=== PATIENT | male | born 1965 | race American Indian/Alaskan Native ===

== ENCOUNTER 2018-10-15 18:20 | Emergency (ER) | payer SELFPAY ==
[~2018-10-15] VITALS: Ht 180.3 cm; Wt 86.2 kg
--- OUTSIDE RECORDS SUMMARY | 2018-10-15 18:24 | XMS ---
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 No recent Security Events currently on file CRITERIA MET - 6 ED Visits in 6 Months - [facility] - Has Care Guidelines - [facility] - 3 Facilities in 90 Days - [facility] - 2 Visits in 30 Days CARE PROVIDERS LULU LUCAINO Current PHONE: Unknown [facility] Primary [facility] Current PHONE: Unknown [facility] Primary Care Current ADMINISTRATION PHONE: Unknown Guidelines Source: [facility] Guidelines Date: 01/02/2017 Care Recommendation: Modified Care Plan Name: Heidi Bingham Security Alert: Unknown Reason for referral:??This patient has been identified as having >5 ED visits within the past year at EDs in [facility]. Coverage:??Payor: MEDICAID / Plan: MEDICAID Triductor / Product Type: MEDICAID PCP:??Selected No PCP None Chief complaint: Alcohol Problem Patient Histories Patient Active Problem List Diagnosis Date Noted ISOLATION PRECAUTIONS 04/13/2014 Priority: High Overview Note: 04/11/14, +MRSA, Wound, Left knee. Contact precautions required, only Infection Prevention may resolve. Suicidal ideation 10/10/2016 Case management patient 11/11/2012 Overview Note: Patient has an ED Q-File Care Plan, please find under Chart Review/ENC/Care Management or pt summary tab previous ED visits. Nolvia Montoya RN, BSN ED Data Entry Clerk [phone] pager Alcohol withdrawal ([facility]) 11/30/2010 Acidosis 11/29/2010 Other and unspecified alcohol dependence, unspecified drinking behavior 11/28/2010 Alcohol withdrawal delirium ([facility]) 11/28/2010 Dehydration 11/28/2010 MedicalHistory Past Medical History: Diagnosis Date Bipolar affective disorder ([facility]) Depressive disorder, not elsewhere classified Depression PastSurgicalHistory No past surgical history on file. SHOP ESTIMATOR reviewed: N/A Plan: This patient has been identified as having >?5 ?ED visits within the past?year?at EDs in [facility] Provide education regarding the appropriate use of emergency services. Encourage follow up with primary care provider Provide community resources regarding locating a primary care provider if the patient does not have an identified primary care provider. Encourage review of the patients [place] Prescription Monitoring Program profile if there are concerns about potential medication seeking behaviors Additional care guidelines exist for the following facilities: [facility] ( 02/20/2016 ) E.D. VISIT COUNT (12 MO.) 5 Hillary Combs [facility] 2 [facility] 4 [facility] 6 [facility] 2 [facility] TOTAL 20 NOTE: Visits indicate total known visits. 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 TYPE: Emergency DIAGNOSES: - depression - Major depressive disorder, single episode, unspecified - Mental disorder, not otherwise specified 09/22/2018 02:[address] [facility] [place] TYPE: Emergency DIAGNOSES: - depression - Encounter for issue of repeat prescription [facility]02[facility]2018 [facility] [place] [facility] Emergency DIAGNOSES: - Major depressive disorder, single episode, unspecified - Medication Refill - depression 08/05/2018 14:39 [facility] [place] TYPE: Emergency DIAGNOSES: - Mental Eval - Procedure and treatment not carried out due to patient leaving prior to being seen by health care provider 07/21/2018 22:36 Mary [place] TYPE: Emergency COMPLAINT: - MEDICAL CLEARENCE 04/19/2018 11:56 Mary [place] TYPE: Emergency COMPLAINT: - MEDICAL CLEARANCE 04/13/2018 02:09 Mary Hernandez [place] TYPE: Emergency COMPLAINT: - MEDICAL CLEARANCE 04/02/2018 23:23 [facility] Garret Bloom [place] TYPE: Emergency COMPLAINT: - MED CLEAR, ALCOHOL INTOXICATION - ENCOUNTER OTH ADMIN EXAMINATIONS DIAGNOSES: 0. Encounter for other administrative examinations 1. Encounter for other administrative examinations 04/01/2018 20:56 [facility] [place] TYPE: Emergency COMPLAINT: - MEDICAL CLEARANCE - ENCOUNTER OTH ADMIN EXAMINATIONS DIAGNOSES: 0. Encounter for other administrative examinations 1. Encounter for other administrative examinations 3. Alcohol abuse with intoxication, unspecified 01/18/2018 20:10 [facility] [place] TYPE: Emergency COMPLAINT: - MEDICAL CLEARANCE - ALCOHOL ABUSE WITH INTOXICATION UNS DIAGNOSES: 0. Alcohol abuse with intoxication, unspecified 1. Alcohol abuse with intoxication, unspecified 3. Anxiety disorder, unspecified 4. 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 Vomiting, unspecified 1. Alcohol abuse with intoxication, unspecified 3. Hiccough 4. Major depressive disorder, single episode, unspecified 5. Essential (primary) hypertension 6. 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 01/03/2018 22:08 [facility] Merle [place] TYPE: Emergency DIAGNOSES: - Major depressive disorder, single episode, unspecified - Personal history of other mental and behavioral disorders - Alcohol dependence with withdrawal with perceptual disturbance - Alcohol dependence with withdrawal delirium - Anxiety - Abdominal Pain - depression 12/28/2017 19:50 Mary [place] TYPE: Emergency COMPLAINT: - INTOXICATION 12/24/2017 22:41 [facility] Allan [place] TYPE: Emergency DIAGNOSES: - Suicidal ideations - Medical Clearance - Other psychoactive substance abuse, uncomplicated - Alcohol abuse, uncomplicated 12/24/2017 12:25 [facility] Allan [place] T[place] TYPE: Emergency DIAGNOSES: - Alcohol use, unspecified with intoxication, unspecified - Anxiety 12/21/2017 21:19 [facility] Merle [place] TYPE: Emergency DIAGNOSES: - Alcohol Intoxication - Homelessness - Alcohol use, unspecified with intoxication, uncomplicated - concerns - Anxiety 11/29/2017 23:11 Hillary [place] TYPE: Emergency COMPLAINT: - MED CLEARANCE INPATIENT VISIT TRACKING (12 MO.) 01/03/2018 22:08 [facility] TYPE: General Medicine DIAGNOSES: - Major depressive disorder, single episode, unspecified - Alcohol dependence with withdrawal with perceptual disturbance - Alcohol dependence with withdrawal delirium - Personal history of other mental and behavioral disorders [email or web address]
[2018-10-15] MEDS ORDERED: PROZAC40 MG PO (18:30)
[2018-10-15] MEDS ORDERED: TRAZODONE HCL50 MG PO (18:30)
== END 2018-10-15 22:16 | disposition home or self-care (01) ==
LOC: ED 18:20
DX: R10.12 Left upper quadrant pain (principal); F10.10 Alcohol abuse, uncomplicated; F41.9 Anxiety disorder, unspecified; F32.9 Major depressive disorder, single episode, unspecified; F31.9 Bipolar disorder, unspecified; Z79.899 Other long term (current) drug therapy
CPT/HCPCS: 74177; 80053; 81001; 83690; 85025; 99284-25; G0480; J3411; J7030